=== PATIENT | female | born 1960 | race American Indian/Alaskan Native ===

== ENCOUNTER 2017-03-06 06:23 | Outpatient (CLI) | payer MEDICARE, OTHER ==
--- NOTE | 2017-03-06 10:01 | Cat Scan Report ---
CT scan of abdomen and pelvis with IV contrast: History: Hernia. Findings: Normal lung bases. No pleural pericardial effusion. 4.8 x 2.6 cm hypoechoic density lesion with peripheral enhancement noted at posterior aspect of right lobe of the liver. Normal adrenals and kidney parenchyma and bladder. No free intraperitoneal fluid or air. No evidence of adenopathy. Normal aorta. Gaseous colon with stool in colon. Normal appendix. No evidence of diverticulitis. Impression: Hypodense lesion right lobe of the liver with peripheral enhancement and almost isoattenuation on delayed images probably suggestive for hemangioma. Sonographic correlation may be advised. Impression: Gaseous colon with moderate volume stool in colon. Diverticulosis sigmoid colon.
== END 2017-03-06 06:24 | disposition home or self-care (01) ==
LOC: CT 06:23
PROVIDERS: ATTEND Surgery
DX: K42.9 Umbilical hernia without obstruction or gangrene (principal); K57.30 Diverticulosis of large intestine without perforation or abscess without bleeding; K76.89 Other specified diseases of liver; R19.5 Other fecal abnormalities
CPT/HCPCS: 74177; Q9967